=== PATIENT | female | born 1955 | race Caucasian/White ===

== ENCOUNTER → 2019-06-25 | Outpatient (CLI) | payer OTHER ==
[~2019-06-25] MED LIST: HYDCHL25; SPIR25
[2019-06-26 05:08] LABS: HIV SCREEN 4TH GENERATION WRFX Non Reactive (Non Reactive)
== END | disposition home or self-care (01) ==
LOC: LAB SHORT 10:02 → LAB UCHC 10:02
PROVIDERS: Student in an Organized Health Care Education/Training Program
DX: B18.2 Chronic viral hepatitis C (principal)
CPT/HCPCS: 36415; 87389; 87902

== ENCOUNTER → 2019-10-25 | Outpatient (CLI) | payer SELFPAY ==
[2019-10-25 20:21] LABS: Osmolality, Urine 193 mos/kg (15-1400)
[2019-10-25 20:41] LABS: Sodium, Urine, Random 33 mmol/L (20-110)
== END ==
LOC: LAB UCHC 11:25 → LAB SHORT 11:25
PROVIDERS: Physician Assistant
DX: E87.1 Hypo-osmolality and hyponatremia (principal)
CPT/HCPCS: 83935; 84300

== ENCOUNTER 2020-10-20 05:03 | Day surgery (SDC) | payer MEDICARE ==
[~2020-10-20] VITALS: Ht 165.1 cm; Wt 67.2 kg
[~2020-10-20 05:03] MED LIST changes: +ATOR40TA PO; +LEVSOD75 PO; +LOSA50 PO; +OMEP20ER PO
--- NOTE | 2020-10-20 10:30 | NUR ---
10/20/20 1030 Blas Watson INJECTED BY TECH PER DR. MOON
== END 2020-10-20 11:10 | disposition home or self-care (01) ==
LOC: ORSCSDS 05:03
PROVIDERS: Student in an Organized Health Care Education/Training Program
PROC: 0DBN8ZX Excision of Sigmoid Colon, Via Natural or Artificial Opening Endoscopic, Diagnostic (ICD-10-PCS; principal; 2020-10-20 10:15)
PROC: 0DB98ZX Excision of Duodenum, Via Natural or Artificial Opening Endoscopic, Diagnostic (ICD-10-PCS; principal; 2020-10-20 10:15)
PROC: 0DB58ZX Excision of Esophagus, Via Natural or Artificial Opening Endoscopic, Diagnostic (ICD-10-PCS; principal; 2020-10-20 10:15)
PROC: 0DBK8ZX Excision of Ascending Colon, Via Natural or Artificial Opening Endoscopic, Diagnostic (ICD-10-PCS; principal; 2020-10-20 10:15)
PROC: 0DBL8ZX Excision of Transverse Colon, Via Natural or Artificial Opening Endoscopic, Diagnostic (ICD-10-PCS; principal; 2020-10-20 10:15)
DX: K22.70 Barrett's esophagus without dysplasia (principal); K21.9 Gastro-esophageal reflux disease without esophagitis; Z12.11 Encounter for screening for malignant neoplasm of colon; D12.2 Benign neoplasm of ascending colon; D12.5 Benign neoplasm of sigmoid colon; D12.3 Benign neoplasm of transverse colon; K64.8 Other hemorrhoids; K64.4 Residual hemorrhoidal skin tags; K44.9 Diaphragmatic hernia without obstruction or gangrene; I10 Essential (primary) hypertension; E78.5 Hyperlipidemia, unspecified; E03.9 Hypothyroidism, unspecified; B19.20 Unspecified viral hepatitis C without hepatic coma; Z79.899 Other long term (current) drug therapy
CPT/HCPCS: 88305; J2704; J7120

== ENCOUNTER 2022-11-23 05:59 | Day surgery (SDC) | payer MEDICARE ==
[~2022-11-23] VITALS: Ht 165.1 cm; Wt 69.6 kg
[~2022-11-23 05:59] MED LIST changes: +ALBU90OI INH; +ATOR10 PO; +CYCL10 PO; +DILTIAZEM 24HR240 M4 PO; +Lovastatin20 MG PO; +ROSU10TA PO; +ZOCOR20 MG PO
--- NOTE | 2022-11-23 07:00 | NUR ---
NOZIN X3 AMPULES USED TO CLEAN NARES BILAT PER DR EDMOND' ORDER. KNEE HIGH DOMINGO HOSE AND CALF PAS APPLIED TO LLE. PATIENT STORED BOTTOM DENTURES IN HER BAG, PER HER PREFERENCE. TOP DENTURES LEFT IN MOUTH. PATIENT BELONGINGS STORED UNDER GURNEY. PLAN FOR GLASSES TO BE BROUGHT TO PACU FOR SAFE KEEPING DURING SURGERY.
--- NOTE | 2022-11-23 10:47 | NUR ---
ADMIT NOTE PATIENT NEW ADMIT TO UNIT FROM PACU, POD [address] EDMOND. ARRIVED TO ROOM IN BED. ALERT AND ORIENTED. SPINAL IN EFFECT, REPORTS SENSATION TO MID THIGH, CAN FEEL PRESSURE IN RIGHT FOOT. AQUACEL, DOMINGO HOSE, SCDS, AND POLAR PACK ALL IN PLACE. TOLERATING SNACKS AND WATER. VSS. TXA INFUSED AND LR RUNNING. IV IN LEFT FOREARM. RESTING IN BED AT THIS TIME WITH CALL LIGHT IN REACH WATCHING TV. REPORTS MILD ACHE TO RIGHT KNEE 09/14. WILL CONTINUE TO MONITOR.
--- NOTE | 2022-11-23 18:12 | NUR ---
SHIFT SUMMARY PATIENT SBA WITH FWW AND GB. WALKED IN VIDAL WITH PHYSICAL THERAPY. TOLERATING REGULAR DIET AND LIQUIDS. VOIDING WELL. MEDICATE FOR PAIN PER EMAR. AQUACEL TO RIGHT KNEE C/D/I. PLAN FOR DISCHARGE HOME TOMORROW 11/24/22 AFTER CLEARING PHYSICAL THERAPY.
[2022-11-24 05:01] LABS: BASOPHILS ABSOLUTE AUTO 0.03 K/mm3 (0.00-0.23); BASOPHILS PERCENT AUTO 0 % (0-2); EOSINOPHILS PERCENT AUTO 0 % (0-6); Hematocrit 37.8 % (33.0-51.0); IMMATURE GRAN ABSOLUTE AUTO 0.12 K/mm3 (0.00-0.10); IMMATURE GRAN PERCENT AUTO 1 % (0-1); LYMPHOCYTES ABSOLUTE AUTO 0.77 K/mm3 (0.84-5.20); LYMPHOCYTES PERCENT AUTO 4 % (21-46); MONOCYTES ABSOLUTE AUTO 0.93 K/mm3 (0.16-1.47); MONOCYTES PERCENT AUTO 4 % (4-13); Mean Corpuscular HGB 31.1 pg (26.0-34.0); Mean Corpuscular HGB Conc 34.4 g/dL (31.5-36.5); Mean Corpuscular Volume 90 fL (80-100); Mean Platelet Volume 9.5 fL (9.1-12.4); NEUTROPHILS ABSOLUTE AUTO 19.49 K/mm3 (1.96-9.15); NEUTROPHILS PERCENT AUTO 91 % (41-73); Platelet Count 241 K/mm3 (150-400); RDW Coefficient Variation 11.7 % (11.7-14.2); RDW Standard Deviation 38.8 fL (35.1-46.3); Red Blood Cell Count 4.18 M/mm3 (3.80-5.20); White Blood Cell Count 21.34 K/mm3 (4.00-11.30)
--- NOTE | 2022-11-24 05:27 | NUR ---
SHIFT SUMMARY POD #1 R TKA PT IS A&O X4. VSS, ON RA, DRSG C/D/I, SBA W/FWW & GAIT BELT, PAIN MNGD PER EMAR, POLAR PACK IN PLACE, CIRC WNL, PT IS VOIDING WNL, NAUSEA NOTED ON OCCASION, ZOFRAN GIVEN X1, PT EATING CRACKERS WITH PAIN MEDS, UP IN CHAIR THIS AM, CALL LIGHT IN REACH, WCTM & REPORT TO ONCOMING RN.
[2022-11-24 06:14] LABS: Creatinine, Blood 0.6 mg/dL (0.40-1.00); Potassium, Blood 4.1 mmol/L (3.5-5.5)
[2022-11-24] MEDS ORDERED: Percocet 5-3251 EACH PO (08:28)
[2022-11-24] MEDS ORDERED: ASPI81CH PO (08:28)
--- NOTE | 2022-11-24 09:30 | NUR ---
DISCHARGE PT HAS CLEARED THERAPY. PAIN WELL CONTROLLED. EATING, DRINKING, & VOIDING WELL. DRSGS, SCRIPT, & POLAR PACK SENT w/ PT. ESCORTED OUT VIA W/C.
== END 2022-11-24 09:30 | disposition home or self-care (01) ==
LOC: ORSCMMR 05:59 → SURS 10:18 → ORD 12:45 → ORSCMMR 12:45 → SURS 11-24 09:30
PROVIDERS: Orthopaedic Surgery
PROC: 8E0Y0CZ Robotic Assisted Procedure of Lower Extremity, Open Approach (ICD-10-PCS; principal; 2022-11-23 07:30)
PROC: 0SRC0JA Replacement of Right Knee Joint with Synthetic Substitute, Uncemented, Open Approach (ICD-10-PCS; principal; 2022-11-23 07:30)
DX: M17.11 Unilateral primary osteoarthritis, right knee (principal); I10 Essential (primary) hypertension; E03.9 Hypothyroidism, unspecified; J45.909 Unspecified asthma, uncomplicated; Z79.899 Other long term (current) drug therapy
CPT/HCPCS: 27447; 20985; S2900; 36415; 73560-RT; 80048; 85025; 97110; 97116; 97162; 97530; A9270; J0171; J0690; J0735; J1100; J1170; J1885; J2250; J2370; J2405; J2704; J2765; J2795; J3010; J7120

== ENCOUNTER → 2024-05-28 | Outpatient (CLI) | payer MEDICARE ==
[~2024-05-28] MED LIST changes: +ASPI81CH PO; +Percocet 5-3251 EACH PO
[2024-05-28 17:30] LABS: BASOPHILS PERCENT AUTO 1 % (0-2); EOSINOPHILS ABSOLUTE AUTO 0.08 K/mm3 (0.00-0.68); EOSINOPHILS PERCENT AUTO 1 % (0-6); Hemoglobin 15.7 g/dL (11.5-16.0); IMMATURE GRAN ABSOLUTE AUTO 0.04 K/mm3 (0.00-0.10); IMMATURE GRAN PERCENT AUTO 0 % (0-1); LYMPHOCYTES ABSOLUTE AUTO 1.75 K/mm3 (0.84-5.20); LYMPHOCYTES PERCENT AUTO 19 % (21-46); MONOCYTES ABSOLUTE AUTO 0.62 K/mm3 (0.16-1.47); MONOCYTES PERCENT AUTO 7 % (4-13); Mean Corpuscular HGB 31.5 pg (26.0-34.0); Mean Corpuscular HGB Conc 33.4 g/dL (31.5-36.5); Mean Corpuscular Volume 94 fL (80-100); Mean Platelet Volume 9.6 fL (9.1-12.4); NEUTROPHILS ABSOLUTE AUTO 6.53 K/mm3 (1.96-9.15); NEUTROPHILS PERCENT AUTO 72 % (41-73); Platelet Count 344 K/mm3 (150-400); RDW Coefficient Variation 11.9 % (11.7-14.2); RDW Standard Deviation 41.4 fL (35.1-46.3); Red Blood Cell Count 4.98 M/mm3 (3.80-5.20); White Blood Cell Count 9.12 K/mm3 (4.00-11.30)
[2024-05-28 19:39] LABS: Free Thyroxine 0.99 ng/dL (0.70-1.60)
[2024-05-28 19:40] LABS: Alanine Aminotransfer (ALT/SGP 26 U/L (12-78); Albumin, Blood 4.6 g/dL (3.4-5.0); Alk Phos 124 U/L (50-136); Anion Gap 12 mmol/L (3-11); Aspartate Aminotrans (AST/SGOT 26 U/L (12-37); Bilirubin, Direct <0.1 mg/dL (0.0-0.3); Bilirubin, Indirect Unable to Calculate mg/dL (0.1-0.7); Bilirubin, Total 0.3 mg/dL (0.1-1.0); Blood Urea Nitrogen 11 mg/dL (8-24); Bun/Creatinine Ratio 14.7 (12.0-20.0); CHOL/HDL RATIO 5.9; CO2, Blood 24 mmol/L (21-32); Calcium, Blood 10.1 mg/dL (8.5-10.1); Chloride, Blood 107 mmol/L (98-108); Cholesterol 350 mg/dL (50-200); Creatinine, Blood 0.75 mg/dL (0.40-1.00); Globulin, Blood 4.6 g/dL (2.2-4.0); Glomerular Filtration Rate 88 (60-); Glucose, Blood 108 mg/dL (70-99); HDL Cholesterol 59 mg/dL (>39); LDL/HDL RATIO 3.7; Low Density Lipoprotein Chol 221 mg/dL (0-110); Potassium, Blood 3.8 mmol/L (3.5-5.5); Sodium, Blood 139 mmol/L (136-145); Total Protein, Blood 9.2 g/dL (6.4-8.2); Triglycerides 350 mg/dL (30-160); Very Low Density Lipoprot Chol 70 mg/dL (6-32)
== END ==
LOC: LAB 15:20 → LAB SHORT 15:20
PROVIDERS: Nurse Practitioner Family
DX: E55.9 Vitamin D deficiency, unspecified (principal); E03.4 Atrophy of thyroid (acquired); E78.2 Mixed hyperlipidemia; F41.1 Generalized anxiety disorder; I11.0 Hypertensive heart disease with heart failure; I50.32 Chronic diastolic (congestive) heart failure
CPT/HCPCS: 80053; 80061; 82248; 82306; 83880; 84439; 84443; 85025

== ENCOUNTER → 2025-07-01 | Outpatient (CLI) | payer OTHER ==
[2025-07-01 13:09] LABS: Alanine Aminotransfer (ALT/SGP 44 U/L (12-78); Albumin, Blood 4.1 g/dL (3.4-5.0); Albumin/Globulin Ratio 1.1 (0.8-1.8); Anion Gap 11 mmol/L (3-11); Aspartate Aminotrans (AST/SGOT 31 U/L (12-37); Bilirubin, Total 0.4 mg/dL (0.1-1.0); Blood Urea Nitrogen 13 mg/dL (8-24); CHOL/HDL RATIO 6.0; CO2, Blood 23 mmol/L (21-32); Calcium, Blood 9.3 mg/dL (8.5-10.1); Chloride, Blood 105 mmol/L (98-108); Cholesterol 283 mg/dL (50-200); Creatinine, Blood 0.75 mg/dL (0.40-1.00); Globulin, Blood 3.8 g/dL (2.2-4.0); Glucose, Blood 122 mg/dL (70-99); HDL Cholesterol 47 mg/dL (>39); LDL/HDL RATIO 3.7; Low Density Lipoprotein Chol 174 mg/dL (0-110); Magnesium, Blood 2.2 mg/dL (1.6-2.4); Potassium, Blood 4.0 mmol/L (3.5-5.5); Sodium, Blood 135 mmol/L (136-145); Thyroid Stimulating Hormone 6.490 uIU/mL (0.360-4.800); Total Protein, Blood 7.9 g/dL (6.4-8.2); Triglycerides 310 mg/dL (30-160); Very Low Density Lipoprot Chol 62 mg/dL (6-32)
== END | disposition home or self-care (01) ==
LOC: LAB 10:47 → LAB SHORT 10:47
PROVIDERS: Family Medicine
DX: I12.9 Hypertensive chronic kidney disease with stage 1 through stage 4 chronic kidney disease, or unspecified chronic kidney disease (principal); N18.2 Chronic kidney disease, stage 2 (mild); E03.4 Atrophy of thyroid (acquired); E78.49 Other hyperlipidemia; K21.9 Gastro-esophageal reflux disease without esophagitis; K22.719 Barrett's esophagus with dysplasia, unspecified
CPT/HCPCS: 80053; 80061; 83735; 84443